=== PATIENT | female | born 1995 | race Caucasian/White ===

== ENCOUNTER 2018-08-06 10:46 | Emergency (ER) | payer MEDICAID ==
[~2018-08-06] VITALS: Ht 157.5 cm; Wt 82.4 kg
[2018-08-06 10:57] VITALS: BP 130/64
== END 2018-08-06 11:36 | disposition home or self-care (01) ==
LOC: ER 10:52
DX: S63.611A Unspecified sprain of left index finger, initial encounter (principal); W18.39XA Other fall on same level, initial encounter; Y93.89 Activity, other specified; Y92.89 Other specified places as the place of occurrence of the external cause; Y99.8 Other external cause status
CPT/HCPCS: 73130; 81025; 99283

== ENCOUNTER 2018-09-14 19:34 | Emergency (ER) | payer MEDICAID ==
[~2018-09-14] VITALS: Ht 157.5 cm; Wt 84.0 kg
[2018-09-14 20:26] VITALS: BP 142/79
== END 2018-09-15 05:03 | disposition left against medical advice (07) ==
LOC: ER 19:34
DX: M79.675 Pain in left toe(s) (principal)
CPT/HCPCS: 99281